=== PATIENT | female | born 1940 | race Caucasian/White ===

== ENCOUNTER 2017-04-15 08:40 | Day surgery (SDC) | payer MEDICARE, BC ==
--- NOTE | ~2017-04-15 | EGD ---
EGD REPORT [facility] [address] [place] [place] [address] NAME: YENI SOUZA : [birth year] STATUS : REG [facility]#: [id number] AGE: 76 ADM/REG DATE : 04/15/17 MR#: [id number] REPORT SERV DATE: 04/15/17 DICTATED BY: PAULA LUND DATE: 04/15/17 REPORT STATUS : Draft TRANSCRIBED BY: [facility] DATE: 04/15/17 [facility] Center Patient Name: Yeni Souza Date of : 1940 Attending MD: PAULA LUND MD Procedure Date No Time: 04/15/2017 Procedure: Colonoscopy Indications: High risk colon cancer surveillance: Personal history of colonic polyps, FH of Colon Cancer - 1st degree relative Referring MD: VIANCA PENNINGTON Medicines: as per anesthesia Complications: No immediate complications. Procedure: Pre-Anesthesia Assessment: - ASA Grade Assessment: III - A patient with severe systemic disease. After I obtained informed consent, the scope was passed under direct vision. Throughout the procedure, the patient's blood pressure, pulse, and oxygen saturations were monitored continuously. The [facility] [id number] was introduced through the anus and advanced to the cecum, identified by appendiceal orifice and ileocecal valve. The colonoscopy was performed without difficulty. The patient tolerated the procedure. The quality of the bowel preparation was adequate to identify polyps. Findings: The perianal and digital rectal examinations were normal. Multiple small and large-mouthed diverticula were found in the sigmoid colon, in the descending colon, in the transverse colon and in the ascending colon. Internal hemorrhoids were found during endoscopy and were mild. Impression: - Diverticulosis in the sigmoid colon, in the descending colon, in the transverse colon and in the ascending colon. - Internal hemorrhoids. Recommendation: - Repeat colonoscopy in 5 years for surveillance. Procedure Code(s): --- Professional --- 86997, Colonoscopy, flexible, proximal to splenic flexure; diagnostic, with or without collection of specimen(s) by brushing or washing, with or without colon decompression (separate procedure) EGD REPORT [facility] [address] [address] NAME: YENI SOUZA : [birth year] STATUS : REG [facility] PAT#: [id number] AGE: 76 ADM/REG DATE : 04/15/17 MR#: [id number] REPORT SERV DATE: 04/15/17 DICTATED BY: PAULA LUND. DATE: 04/15/17 REPORT STATUS : Draft TRANSCRIBED BY: [employer] DATE: 04/15/17 Diagnosis Code(s): --- Professional --- K64.8, Other hemorrhoids K57.30, Diverticulosis of large intestine without perforation or abscess without bleeding Z86.010, Personal history of colonic polyps Z80.0, Family history of malignant neoplasm of digestive organs CPT copyright 2013 [employer]. All rights reserved. The codes documented in this report are preliminary and upon information coder review may be revised to meet current compliance requirements. PAULA LUND MD 04/15/2017 11:12 AM This report has been signed electronically. Number of Addenda: 0 Note Initiated On: 04/15/2017 10:39 AM Scope Withdrawal Time 0 hours 6 minutes 6 seconds [address] [id number]
[~2017-04-15 08:40] MED LIST: ACET500CAP PO; ALEVE220 MG PO; ASAB PO; NORV5 PO; ZOCOR20 PO; ZYRTEC ALLGY10 MG PO
[2017-06-16] MEDS ORDERED: COZ25 PO (16:07)
[2017-06-16] MEDS ORDERED: LOP25 PO (16:08)
[2017-07-29] MEDS ORDERED: LOP25 PO (06:46)
[2017-07-29] MEDS ORDERED: ZYRTEC ALLGY10 MG PO (06:46)
[2017-07-29] MEDS ORDERED: COZ25 PO (17:18)
== END 2017-04-15 23:59 | disposition home or self-care (01) ==
LOC: DMU 08:40
PROVIDERS: Internal Medicine Gastroenterology
PROC: 0DJD8ZZ Inspection of Lower Intestinal Tract, Via Natural or Artificial Opening Endoscopic (ICD-10-PCS; principal; 2017-04-15 10:00)
DX: Z12.11 Encounter for screening for malignant neoplasm of colon (principal); K57.30 Diverticulosis of large intestine without perforation or abscess without bleeding; K64.8 Other hemorrhoids; I10 Essential (primary) hypertension; E78.00 Pure hypercholesterolemia, unspecified; M19.90 Unspecified osteoarthritis, unspecified site; Z86.010 Personal history of colon polyps; Z80.0 Family history of malignant neoplasm of digestive organs; Z88.2 Allergy status to sulfonamides; Z90.710 Acquired absence of both cervix and uterus; Z96.653 Presence of artificial knee joint, bilateral; Z96.1 Presence of intraocular lens; Z98.41 Cataract extraction status, right eye; Z98.42 Cataract extraction status, left eye; Z79.82 Long term (current) use of aspirin; Z79.1 Long term (current) use of non-steroidal anti-inflammatories (NSAID); Z79.899 Other long term (current) drug therapy; Z98.890 Other specified postprocedural states
CPT/HCPCS: 82962